=== PATIENT | female | born 1940 ===

== ENCOUNTER 2021-09-29 22:02 | Inpatient (IN) ==
[2021-09-30] MEDS ORDERED: Naloxone 0.4 MG/ML INJ IVP PRN (01:55)
[2021-09-30] MEDS ORDERED: MOM Conc 10 ML UD.LIQ PO PRN (01:55)
[2021-09-30] MEDS ORDERED: *HR* Promethazine 25 MG/ML VIAL IM PRN (01:55)
[2021-09-30] MEDS ORDERED: Melatonin 3 MG TABLET PO PRN (01:55)
[2021-09-30] MEDS ORDERED: Acetaminophen 325 MG TABLET PO PRN (01:55)
[2021-09-30] MEDS ORDERED: D5% in Water 1,000 ML IVC PRN (04:26)
[2021-09-30] MEDS ORDERED: *HR* Dextrose 50 % in Water (Syg) 50 ML SYRINGE IVP PRN (04:26)
[2021-09-30] MEDS ORDERED: Dextrose Gel 15 GM/37.5 ML TUBE PO PRN ×2 (04:26)
[2021-09-30] MEDS: Insulin LISPRO 300 UNITS/3 ML VIAL SUBQ SCH ×3 (05:58→17:40)
[2021-09-30 06:00] LABS: Basophils % 0.2 %; Eosinophils # 0.2 K/mcL (0.0-0.6); Eosinophils % 1.1 %; Hematocrit 30.5 % (35.3-44.9); Hemoglobin 9.3 g/dL (11.5-15.4); Immature Granulocytes % 0.8 % (0-4); Lymphocytes # 1.2 K/mcL (0.6-4.6); Lymphocytes % 7.7 %; Mean Corpuscular HGB Conc 30.5 g/dL (31.6-35.5); Mean Corpuscular Hemoglobin 27.4 pg (28.0-33.3); Mean Corpuscular Volume 89.7 fL (83.0-100.0); Mean Platelet Volume 10.3 fL (9.4-12.4); Monocytes # 0.9 K/mcL (0.0-1.3); Monocytes % 5.4 %; Neutrophils # 13.4 K/mcL (1.6-8.9); Platelet Count 153 K/mcL (140-400); Red Cell Distribution Width 14.6 % (11.5-14.5); Segmented Neutrophils % 84.8 %; White Blood Count 15.8 K/mcL (4.3-11.1)
[2021-09-30 06:10] LABS: Calcium 8.8 mg/dL (8.6-10.3); Potassium 5.1 mEq/L (3.5-5.1)
[2021-09-30] MEDS ORDERED: Ipratropium/Albuterol Neb 3 ML IH PRN (06:38)
[2021-09-30] MEDS ORDERED: cefTAZidime 2,000 MG in 0.9 % Sodium Chloride Mini Bag 100 ML IVPB SCH ×2 (08:00→20:00)
[2021-09-30] MEDS ORDERED: Vancomycin 1,250 MG/262.5 ML IV.SOLN IVPB SCH (09:00)
[2021-09-30] MEDS ORDERED: *HR* FentaNYL (PF) 100 MCG/2 ML VIAL ONE (13:58)
[2021-09-30] MEDS ORDERED: Ondansetron 4 MG/2 ML VIAL ONE (13:58)
[2021-09-30] MEDS ORDERED: Lidocaine -MPF 4% 5 ML AMPUL ONE (13:58)
[2021-09-30] MEDS ORDERED: *HR* Succinylcholine 200 MG/10 ML VIAL IVP ONE (13:58)
[2021-09-30] MEDS ORDERED: *HR* Propofol 200 MG/20 ML VIAL IVP ONE (13:58)
[2021-09-30] MEDS ORDERED: Lidocaine -MPF 2% 5 ML VIAL ONE (13:58)
[2021-09-30 15:15] LABS: Influenza A PCR Negative (Negative); Influenza B PCR Negative (Negative); Resp. Syncytial Virus PCR Negative (Negative); SARS-CoV-2 by PCR (In House) Negative (Negative)
[2021-09-30] MEDS ORDERED: *HR* Rocuronium Bromide 50 MG/5 ML VIAL ONE (16:25)
[2021-09-30] MEDS ORDERED: Artificial Tears SOLN 15 ML BOTTLE BOTH EYES PRN (16:56)
[2021-09-30] MEDS ORDERED: Pantoprazole 40 MG VIAL IVP SCH (17:00)
[2021-09-30] MEDS ORDERED: Midazolam HCl 50 MG/100 ML IV.SOLN IVC SCH (17:00)
[2021-09-30] MEDS: FentaNYL (PF) 1,000 MCG/100 ML IV.SOLN IVC SCH ×2 (17:28→23:02)
[2021-09-30] MEDS ORDERED: Lidocaine/EPI 1:100k 1% 50 ML VIAL ONE (17:49)
[2021-09-30] MEDS ORDERED: 0.9 % Sodium Chloride 500 ML ONE (17:49)
[2021-09-30] MEDS ORDERED: Heparin 1,000 UNITS/500 mL 500 ML ONE ×3 (17:49→19:52)
[2021-09-30] MEDS: Midazolam HCl 50 MG/100 ML IV.SOLN IVC SCH (18:00)
[2021-09-30] MEDS ORDERED: *HR* Rocuronium Bromide 50 MG/5 ML VIAL IVP ONE (18:15)
[2021-09-30 18:24] LABS: VBG Ionized Calcium 1.33 mmol/L (1.15-1.35)
[2021-09-30 18:36] LABS: Basophils % 0.2 %; Mean Platelet Volume 9.7 fL (9.4-12.4); Monocytes % 1.4 %; Red Cell Distribution Width 14.6 % (11.5-14.5)
[2021-09-30 18:38] LABS: Eosinophils # 0.1 K/mcL (0.0-0.6); Eosinophils % 0.6 %; Hematocrit 32.3 % (35.3-44.9); Hemoglobin 9.6 g/dL (11.5-15.4); Immature Granulocytes % 1.4 % (0-4); Lymphocytes # 0.8 K/mcL (0.6-4.6); Mean Corpuscular HGB Conc 29.7 g/dL (31.6-35.5); Mean Corpuscular Hemoglobin 28.2 pg (28.0-33.3); Monocytes # 0.3 K/mcL (0.0-1.3); Neutrophils # 19.3 K/mcL (1.6-8.9); Platelet Count 210 K/mcL (140-400); Segmented Neutrophils % 92.4 %; White Blood Count 20.9 K/mcL (4.3-11.1)
[2021-09-30 18:44] LABS: Albumin 2.6 g/dL (3.5-5.7); Albumin/Globulin Ratio 0.6 (1.1-2.2); Bilirubin,Direct 0.2 mg/dL (0.0-0.2); Bilirubin,Indirect 0.2 mg/dL (0.0-1.0); Bilirubin,Total 0.4 mg/dL (0.3-1.0); Calcium 8.8 mg/dL (8.6-10.3); Globulin 4.1 g/dL (2.4-3.5); Magnesium 1.8 mg/dL (1.6-2.6); Phosphorous 5.4 mg/dL (2.7-4.5); Potassium 5.3 mEq/L (3.5-5.1); Total Protein 6.7 g/dL (6.4-8.9)
[2021-09-30 18:45] LABS: INR 1.2; Prothrombin Time 13.6 Seconds (9.4-12.1)
[2021-09-30] MEDS ORDERED: Norepinephrine 4 MG/254 ML IV.SOLN IVC SCH (18:45)
[2021-09-30 18:47] LABS: Activated Partial Thrombo Time 28.3 Seconds (26.0-36.0)
[2021-09-30] MEDS ORDERED: Isovue-300 50ML VIAL IVP ONE ×9 (20:24→20:27)
[2021-09-30] MEDS ORDERED: Chlorhexidine Rinse 15 ML MOUTHWASH MM SCH (21:00)
[2021-09-30] MEDS: Cisatracurium 200 MG in 0.9 % Sodium Chloride 180 ML IVC SCH ×2 (21:14→22:30)
[2021-09-30] MEDS: Artificial Tears SOLN 15 ML BOTTLE BOTH EYES SCH (21:28)
[2021-09-30 21:47] LABS: ABG Base Excess -4 mEq/L (-2 to 3); ABG HCO3 24 mEq/L (21-27); ABG Oxygen Saturation 100 % (95-98); ABG PCO2 55 mmHg (35-45); ABG PH 7.25 pH Units (7.32-7.45); ABG PO2 468 mmHg (85-104); ABG TCO2 26 mEq/L (20-26); Blood Gas VT 400 cc
[2021-09-30] MEDS ORDERED: Cefepime HCl 1,000 MG in Water for inj. (sterile) 10 ML IVP SCH (22:00)
[2021-09-30 23:02] LABS: Basophils % 0.2 %; Hematocrit 28.4 % (35.3-44.9); Hemoglobin 8.3 g/dL (11.5-15.4); Immature Granulocytes % 0.9 % (0-4); Lymphocytes # 0.2 K/mcL (0.6-4.6); Lymphocytes % 1.7 %; Mean Corpuscular HGB Conc 29.2 g/dL (31.6-35.5); Mean Corpuscular Hemoglobin 27.5 pg (28.0-33.3); Mean Platelet Volume 9.8 fL (9.4-12.4); Monocytes # 0.1 K/mcL (0.0-1.3); Monocytes % 0.5 %; Neutrophils # 12.2 K/mcL (1.6-8.9); Platelet Count 145 K/mcL (140-400); Red Blood Count 3.02 M/mcL (3.82-4.97); Red Cell Distribution Width 14.6 % (11.5-14.5); Segmented Neutrophils % 96.7 %; White Blood Count 12.7 K/mcL (4.3-11.1)
[2021-09-30 23:13] LABS: Bilirubin,Urine Negative (Negative); Blood,Urine Small (Negative); Clarity,Urine Clear (Clear); Color,Urine Yellow (Yellow); Glucose,Urine (UA) Normal (Normal); Ketones,Urine 15 mg/dL (Negative); Leukocyte Esterase,Urine Negative (Negative); Nitrite,Urine Negative (Negative); Protein,Urine 30 mg/dL (Neg-Trace); Specific Gravity,Urine 1.015 (1.010-1.025); Urobilinogen,Urine Normal (Normal)
[2021-09-30 23:16] LABS: Mucus,Urine Few per lpf (None-Few); WBC,Urine 0-3 per hpf (0-3)
[2021-09-30 23:19] LABS: Calcium 8.2 mg/dL (8.6-10.3); Magnesium 1.8 mg/dL (1.6-2.6); Potassium 5.4 mEq/L (3.5-5.1)
[2021-09-30 23:25] LABS: Sodium, Urine 11.6 mEq/L
[2021-10-01] MEDS ORDERED: MethylPREDNISolone 40 MG/ML VIAL IVP SCH
[2021-10-01] MEDS ORDERED: MetroNIDAZOLE 500 MG/100 ML 500 MG/100 ML BAG IVPB SCH
[2021-10-01] MEDS: Insulin LISPRO 300 UNITS/3 ML VIAL SUBQ SCH (00:15)
[2021-10-01] MEDS: Artificial Tears SOLN 15 ML BOTTLE BOTH EYES SCH (00:15)
[2021-10-01 00:44] VITALS: TEMP 96.2
[2021-10-01 02:12] VITALS: O2SAT 94
[2021-10-01] MEDS: Midazolam HCl 50 MG/100 ML IV.SOLN IVC SCH (02:55)
[2021-10-01 03:19] VITALS: BP 97/45; PULSE 70
== END 2021-10-01 04:18 | disposition short-term general hospital (02) | DRG 163 ==
LOC: 2NNU → ICNU 09-30 16:36
PROVIDERS: ADMIT Family Medicine; ATTEND Family Medicine